=== PATIENT | female | born 1985 | race African-American/Black ===

== ENCOUNTER 2020-07-15 10:11 | Outpatient (CLI) | payer OTHER | END 2020-07-15 10:12 | disposition home or self-care (01) | LOC: CSHMRI 10:11 | PROVIDERS: ATTEND Internal Medicine Rheumatology | DX: M54.12 Radiculopathy, cervical region (principal); M47.812 Spondylosis without myelopathy or radiculopathy, cervical region; M48.02 Spinal stenosis, cervical region; R93.7 Abnormal findings on diagnostic imaging of other parts of musculoskeletal system | CPT/HCPCS: 72141 ==